=== PATIENT | female | born 2000 | race Caucasian/White ===

== ENCOUNTER 2022-05-27 05:31 | Emergency (ER) | payer OTHER ==
[~2022-05-27] VITALS: Ht 162.6 cm; Wt 56.8 kg
[2022-05-27 05:33] VITALS: BP 111/67
[2022-05-27] MEDS ORDERED: KETOROLAC TROMETHAMINE 10 MG TAB PO ONE (07:50)
== END 2022-05-27 08:49 | disposition home or self-care (01) ==
LOC: M ED 05:31
DX: Z04.1 Encounter for examination and observation following transport accident (principal); M54.9 Dorsalgia, unspecified